=== PATIENT | female | born 1990 | race African-American/Black ===

== ENCOUNTER 2016-10-20 12:22 | Emergency (ER) | payer OTHER ==
--- NOTE | 2016-10-20 12:41 | ER Document Report ---
ED Medical Screen (RME) - General Chief Complaint: Eye Problem Stated Complaint: EYE PAIN Time seen by provider: 12:39 Mode of Arrival: Wheelchair Information source: Patient Notes: 26-year-old female presents to ED for left eye pain started . Pain is sharp states there is a change in vision. She states she went to her primary care doctor and they sent her to the emergency room. I have greeted and performed a rapid initial assessment of this patient. A comprehensive ED assessment and evaluation of the patient, analysis of test results and completion of medical decision making process will be conducted by an additional ED providers. TRAVEL OUTSIDE OF THE [place] IN LAST 30 DAYS: No - Related Data Allergies/Adverse Reactions: No Known Allergies Allergy (Verified 12/05/14 00:31) Past Medical History Psychiatric Medical History: Reports: Hx Anxiety, Hx Depression Past Surgical History: Reports: Hx Abdominal Surgery - Exploratory laparotomy, Hx Appendectomy - Immunizations Hx Diphtheria, Pertussis, Tetanus Vaccination: Yes - unknown Physical Exam - Vital signs Vitals: Temp Pulse Resp BP Pulse Ox 98.1 F 66 18 119/72 100 10/20/16 12:37 10/20/16 12:37 10/20/16 12:37 10/20/16 12:37 10/20/16 12:37 Course - Vital Signs Vital signs: Temp Pulse Resp BP Pulse Ox 98.1 F 66 18 119/72 100 10/20/16 12:37 10/20/16 12:37 10/20/16 12:37 10/20/16 12:37 10/20/16 12:37
--- NOTE | 2016-10-20 14:36 | ER Document Report ---
[id number] Mode of Arrival: Wheelchair Information source: Patient Notes: 26-year-old female presents with complaints of left eye redness light sensitivity and pain. Patient notes symptoms have been ongoing for a few days. Patient does wear contacts. Denies any fevers or chills. Patient admits to blurry vision Patient does have a history of lupus TRAVEL OUTSIDE OF THE [place] IN LAST 30 DAYS: No - HPI Onset: Other Onset/Duration: Persistent Quality of pain: Sharp Severity: Mild Pain Level: 1 Associated symptoms: None Exacerbated by: Denies Relieved by: Denies Similar symptoms previously: Yes - sent in from urgent care Recently seen / treated by doctor: Yes - Related Data Allergies/Adverse Reactions: No Known Allergies Allergy (Verified 12/05/14 00:31) Past Medical History - General Information source: Patient - Social History Smoking Status: Current Every Day Smoker Cigarette use (# per day): No Chew tobacco use (# tins/day): No Smoking Education Provided: No Family History: Reviewed & Not Pertinent, Hypertension, Thyroid Disfunction Patient has suicidal ideation: No Patient has homicidal ideation: No Renal/ Medical History: Denies: Hx Peritoneal Dialysis Psychiatric Medical History: Reports: Hx Anxiety, Hx Depression Past Surgical History: Reports: Hx Abdominal Surgery - Exploratory laparotomy, Hx Appendectomy - Immunizations Hx Diphtheria, Pertussis, Tetanus Vaccination: Yes - unknown Review of Systems - Review of Systems Notes: REVIEW OF SYSTEMS: CONSTITUTIONAL : Denies fever, chills, or sweats. Denies recent illness. EENT: admits to eye pain CARDIOVASCULAR: Denies chest pain. Denies palpitations or racing or irregular heart beat. Denies ankle edema. RESPIRATORY: Denies cough, cold, or chest congestion. Denies shortness of breath, difficulty breathing, or wheezing. GASTROINTESTINAL: Denies abdominal pain or distention. Denies nausea, vomiting , or diarrhea. Denies blood in vomitus, stools, or per rectum. Denies black, tarry stools. Denies constipation. GENITOURINARY: Denies difficulty urinating, painful urination, burning, frequency, blood in urine, or discharge. FEMALE GENITOURINARY: Denies vaginal bleeding, heavy or abnormal periods, irregular periods. Denies vaginal discharge or odor. MUSCULOSKELETAL: Denies back or neck pain or stiffness. Denies joint pain or swelling. SKIN: Denies rash, lesions or sores. HEMATOLOGIC : Denies easy bruising or bleeding. LYMPHATIC: Denies swollen, enlarged glands. NEUROLOGICAL: Denies confusion or altered mental status. Denies passing out or loss of consciousness. Denies dizziness or lightheadedness. Denies headache. Denies weakness or paralysis or loss of use of either side. Denies problems with gait or speech. Denies sensory loss, numbness, or tingling. Denies seizures. PSYCHIATRIC: Denies anxiety or stress. Denies depression, suicidal ideation, or homicidal ideation. ALL OTHER SYSTEMS REVIEWED AND NEGATIVE. Dictation was performed using [employer] recognition software PHYSICAL EXAMINATION: GENERAL: Well-appearing, well-nourished and in no acute distress. HEAD: Atraumatic, normocephalic. EYES: Pupils equal round and reactive to light, extraocular movements intact, conjunctiva are normal on the right injected on the left no discharge noted Vision is 20/200 in each eyes. pressure is 12 in both eyes, under florescent strip no ulcers abrasions noted, no dendrites noted. ENT: Nares patent, oropharynx clear without exudates. Moist mucous membranes. NECK: Normal range of motion, supple without lymphadenopathy LUNGS: Breath sounds clear to auscultation bilaterally and equal. No wheezes rales or rhonchi. HEART: Regular rate and rhythm without murmurs ABDOMEN: Soft, nontender, nondistended abdomen. No guarding, no rebound. No masses appreciated. Female : deferred Musculoskeletal: Normal range of motion, no pitting or edema. No cyanosis. NEUROLOGICAL: Cranial nerves grossly intact. Normal speech, normal gait. Normal sensory, motor exams PSYCH: Normal mood, normal affect. SKIN: Warm, Dry, normal turgor, no rashes or lesions noted. Physical Exam - Vital signs Vitals: Temp Pulse Resp BP Pulse Ox 98.1 F 66 18 119/72 100 10/20/16 12:37 10/20/16 12:37 10/20/16 12:37 10/20/16 12:37 10/20/16 12:37 - HEENT Visual acuity- Right eye: 20-200 Visual acuity- Left eye: 20-200 Visual acuity- Both eyes: 20-200 Corrective lenses worn: Yes Course - Re-evaluation Re-evalutation: 10/20/16 16:15 Patient will be treated as uveitis versus conjunctivitis, will be started on antibiotics have been instructed to dispense of her contacts, patient must follow-up with ophthalmology given her immunosuppressed state After performing a Medical Screening Examination, I estimate there is LOW risk for a RETAINED CORNEAL or LID FOREIGN BODY, DEEP SPACE INFECTION (e.g., ORBITAL CELLULITIS OR ABSCESS), ACUTE GLAUCOMA, PENETRATING GLOBE INJURY, RETINAL DETACHMENT, or MENINGITIS thus I consider the discharge disposition reasonable. Also, there is no evidence or peritonitis, sepsis, or toxicity. The patient and I have discussed the diagnosis and risks, and we agree with discharging home with outpatient follow-up with the understanding that symptoms and presentations can change. We also discussed returning to the Emergency Department immediately if new or worsening symptoms occur. We have discussed the symptoms which are most concerning (e.g., changing or worsening pain, vision changes, neck stiffness or fever) that necessitate immediate return. - Vital Signs Vital signs: Temp Pulse Resp BP Pulse Ox 98.4 F 72 14 115/69 100 10/20/16 14:46 10/20/16 14:46 10/20/16 14:46 10/20/16 14:46 10/20/16 14:46 Discharge - Discharge Clinical Impression: Photophobia Conjunctivitis Qualifiers: Conjunctivitis type: acute Acute conjunctivitis type: bacterial Laterality: left Qualified Code(s): H10.32 - Unspecified acute conjunctivitis, left eye Condition: Stable Disposition: HOME, SELF-CARE Instructions: Conjunctivitis ([facility]) Additional Instructions: You must be seen immediately evaluated by the clinic receptionist Return immediately if there is any other concerns Prescriptions: Gentamicin Sulfate [Garamycin 0.3% Oph Soln 5 ml] 2 drop OS [id number] 10 Days Referrals: CYNTHIA FIGUEROA MD [ACTIVE STAFF] - Follow up tomorrow
[2016-10-20 14:51] VITALS: BP 115/69
== END 2016-10-20 14:48 | disposition home or self-care (01) ==
LOC: ER 12:22
DX: H10.32 Unspecified acute conjunctivitis, left eye (principal); H53.149 Visual discomfort, unspecified; F17.200 Nicotine dependence, unspecified, uncomplicated
CPT/HCPCS: 99282